=== PATIENT | female | born 1995 | race African-American/Black ===

== ENCOUNTER 2017-03-11 21:30 | Emergency (ER) | payer OTHER ==
[~2017-03-11] VITALS: Ht 142.2 cm; Wt 49.0 kg
[2017-03-11 22:15] LABS: PLATELET COUNT 230 K/uL (152-353)
[2017-03-11 22:23] LABS: POTASSIUM 3.2 mmol/L (3.6-5.2); SODIUM 137 mmol/L (136-145)
== END 2017-03-11 23:12 | disposition home or self-care (01) ==
LOC: ED 21:30
DX: N39.0 Urinary tract infection, site not specified (principal)
CPT/HCPCS: 36415; 80053; 81000; 81025; 85027; 87088; 96372; 99283; J1885

== ENCOUNTER 2020-08-28 13:04 | Outpatient (CLI) | payer OTHER | END 2020-08-28 20:24 | disposition home or self-care (01) | LOC: LABW 13:04 | DX: D51.8 Other vitamin B12 deficiency anemias (principal) | CPT/HCPCS: 36415; 82607 ==

== ENCOUNTER 2021-01-14 16:24 | Outpatient (CLI) | payer OTHER | END 2021-01-14 22:13 | disposition home or self-care (01) | LOC: INF 16:24 | PROVIDERS: ATTEND Internal Medicine | DX: Z23 Encounter for immunization (principal) | CPT/HCPCS: 96372 ==

== ENCOUNTER 2022-08-09 13:16 | Outpatient (CLI) | payer OTHER | END 2022-08-09 20:56 | disposition home or self-care (01) | LOC: RAD 13:16 | PROVIDERS: ATTEND Family Medicine | DX: R05.9 Cough, unspecified (principal) ==

== ENCOUNTER 2022-08-26 22:10 | Emergency (ER) | payer OTHER ==
[~2022-08-26] VITALS: Ht 154.9 cm; Wt 56.2 kg
[2022-08-27 00:31] LABS: POTASSIUM 3.4 mmol/L (3.6-5.2)
[2022-08-27 00:32] LABS: PLATELET COUNT 204 K/uL (152-353)
[2022-08-27 01:10] VITALS: BP 122/82; TEMP 97.7
== END 2022-08-27 01:10 | disposition home or self-care (01) ==
LOC: ED 22:10
PROVIDERS: Emergency Medicine
DX: R06.02 Shortness of breath (principal)
CPT/HCPCS: 36415; 80053; 81025; 85027; 85379; 99283

== ENCOUNTER 2022-09-01 16:07 | Outpatient (CLI) | payer OTHER | END 2022-09-01 19:16 | disposition home or self-care (01) | LOC: LABW 16:07 | PROVIDERS: ATTEND Nurse Practitioner Family | DX: R05.9 Cough, unspecified (principal) | CPT/HCPCS: 36415; 86615 ==

== ENCOUNTER 2022-12-13 09:10 | Outpatient (CLI) | payer OTHER | END 2022-12-13 20:16 | disposition home or self-care (01) | LOC: US 09:10 | PROVIDERS: ATTEND Family Medicine | DX: R10.2 Pelvic and perineal pain (principal) ==